=== PATIENT | female | born 1960 | race Caucasian/White ===

== ENCOUNTER → 2017-04-13 | Outpatient (CLI) | payer OTHER ==
--- NOTE | 2017-04-13 10:57 | KCIC ---
EXAM: Left hip, 2 views; lumbar spine, 5 views. HISTORY: Pain. COMPARISON: None. FINDINGS: Lumbar spine: Frontal, lateral, bilateral oblique and coned sacral views of the lumbar spine are obtained. There is no listhesis. The vertebral bodies are normal in height and the disc spaces are preserved. There is mild facet arthropathy at the lumbosacral junction. Left hip: Frontal and lateral views of the left hip are obtained. There is no fracture, dislocation or subluxation. The femoral head is normal in configuration. There is a small incidental synovial herniation pit within the femoral neck. IMPRESSION: 1. No acute osseous finding. 2. Mild facet arthropathy at the lumbosacral junction. Electronically signed by: Kizzy Corey MD (04/13/2017 10:53 AM) [facility]
== END | disposition home or self-care (01) ==
LOC: KCIC 08:07
PROVIDERS: ATTEND Internal Medicine
DX: M25.552 Pain in left hip (principal); M54.5 Low back pain
CPT/HCPCS: 72110; 73502

== ENCOUNTER → 2017-08-02 | Outpatient (CLI) | payer OTHER ==
--- NOTE | 2017-08-04 10:02 | KCIC ---
Bilateral digital screening mammograms: Reason for examination: Routine screening. Comparison is made to previous studies dated 07/09/2016 and 07/04/2015. Interpretation was made with the benefit of CAD. The skin and nipples show no abnormalities. No abnormal axillary lymph nodes are seen. The breast parenchyma shows scattered fibroglandular density. (Breast density: Category B.) There are no dominant masses, suspicious calcifications or architectural distortions. Impression: No evidence of malignancy. Recommend routine screening. BI-RADS Category 1: Negative. "Our facility is accredited by the [employer] Mammography [employer]." This patient's information has been entered into a reminder system for the patient to be notified with the results of her examination and a target date for the next mammogram. Electronically signed by: Michela Schulte MD (08/04/2017 9:58 AM) [id number]
== END | disposition home or self-care (01) ==
LOC: KCIC MAMMO 15:31
PROVIDERS: ATTEND Internal Medicine
DX: Z12.31 Encounter for screening mammogram for malignant neoplasm of breast (principal)
CPT/HCPCS: G0202; 77067

== ENCOUNTER → 2018-08-31 | Outpatient (CLI) | payer OTHER ==
--- NOTE | 2018-08-31 16:53 | KCIC ---
Bilateral digital screening mammograms: Reason for examination: Routine screening. Comparison is made to previous studies dated 08/02/2017 and 07/09/2016. Interpretation was made with the benefit of CAD. The skin and nipples show no abnormalities. No abnormal axillary lymph nodes are seen. The breast parenchyma shows scattered fibroglandular density. (Breast density: Category B.) There are no dominant masses, suspicious calcifications or architectural distortions. Impression: No evidence of malignancy. Recommend routine screening. BI-RADS Category 1: Negative. "Our facility is accredited by the [employer] Mammography [employer]." This patient's information has been entered into a reminder system for the patient to be notified with the results of her examination and a target date for the next mammogram. Electronically signed by: Michela Schulte MD (08/31/2018 4:49 PM) [facility]
== END | disposition home or self-care (01) ==
LOC: KCIC MAMMO 14:48
PROVIDERS: ATTEND Internal Medicine
DX: Z12.31 Encounter for screening mammogram for malignant neoplasm of breast (principal)
CPT/HCPCS: 77067

== ENCOUNTER → 2018-10-31 | Outpatient (CLI) | payer OTHER ==
--- NOTE | 2018-10-31 16:24 | KCIC ---
EXAM: Pelvic sonogram. HISTORY: Perineal pain. TECHNIQUE: Sonographic imaging of the pelvis was performed. COMPARISON: None. FINDINGS: The uterus measures 5.2 x 2.5 x 3.0 cm. The endometrial stripe measures 5 mm in thickness. The right ovary is not well seen due to bowel gas. This appears to be normal in size and demonstrate normal blood flow. The left ovary is surgically absent. The cervix is heterogeneous and contains calcifications. No discrete cervical mass is seen. There is no pelvic free fluid. IMPRESSION: 1. Upper limits of normal thickness endometrial stripe thickness for the postmenopausal status of the patient. 2. Heterogeneous cervix containing multiple calcifications. No discrete mass is seen sonographically. 3. Surgically absent left ovary and suboptimal evaluation of the right ovary due to bowel gas. Electronically signed by: Kizzy Corey MD (10/31/2018 4:21 PM) [id number]
== END | disposition home or self-care (01) ==
LOC: KCIC US 14:51
PROVIDERS: ATTEND Internal Medicine
DX: N88.8 Other specified noninflammatory disorders of cervix uteri (principal); Z90.721 Acquired absence of ovaries, unilateral; Z78.0 Asymptomatic menopausal state
CPT/HCPCS: 76830; 76856

== ENCOUNTER → 2018-11-23 | Outpatient (CLI) | payer OTHER ==
[~2018-11-23] MED LIST: IOHEXOL 240 MG/ML 50ML VIAL. PO ONE; IOHEXOL 300 MG/ML 100ML VIAL. IV ONE
--- NOTE | 2018-11-23 10:37 | KCIC ---
PQRS Compliance statement: One or more of the following individualized dose reduction techniques were utilized for this examination: 1. Automated exposure control. 2. Adjustment of the mA and/or kV according to patient size. 3. Use of iterative reconstruction technique. Indication:Lower abdominal pain. TECHNIQUE: CT abdomen and pelvis with IV contrast with multiplanar reformats. COMPARISON: None FINDINGS: Heart is normal in size. No pericardial or pleural effusion. Clear lung bases. Liver, spleen, gallbladder, pancreas, adrenals and kidneys within normal limits. No free pelvic fluid or ascites. No enlarged retroperitoneal or pelvic adenopathy. No bowel obstruction. Large amount of colonic stool burden. Normal appendix. Uterus is present. Urinary bladder within normal limits. No pneumoperitoneum. No suspicious bony lesion. IMPRESSION: No acute findings. Electronically signed by: Pavan Francis DO (11/23/2018 10:34 AM) [id number]
== END | disposition home or self-care (01) ==
LOC: KCIC CT 07:59
PROVIDERS: ATTEND Internal Medicine
DX: R10.30 Lower abdominal pain, unspecified (principal)
CPT/HCPCS: 74177; Q9966; Q9967

== ENCOUNTER → 2021-01-16 | Outpatient (CLI) | payer OTHER ==
--- NOTE | 2021-01-16 16:39 | KCIC ---
BILATERAL SCREENING MAMMOGRAM History: Routine screening. Comparison: Bilateral mammogram 08/31/2018. Technique: Routine digital mammogram views were obtained. Findings: Breast Tissue Density B : There are scattered areas of fibroglandular density. There are no dominant masses, suspicious microcalcifications or architectural distortion. IMPRESSION: No mammographic evidence of malignancy. Recommend routine screening. BI-RADS category 1: Negative. The images were reviewed with computer aided detection. Patient information is entered into the reminder system with a target due date for the next screening mammogram. Mammography is the most sensitive method for finding small breast cancers, but it does not detect the m all and is not a substitute for careful clinical examination. A negative mammogram does not negate a clinically suspicious finding and should not result in delay in biopsying a clinically suspicious a bnormality. "Our facility is accredited by the [employer] Mammography Program." Electronically signed by: Alexx Noriega MD (01/16/2021 4:36 PM) [id number]
== END ==
LOC: KCIC MAMMO 08:46
PROVIDERS: ATTEND Family Medicine
DX: Z12.31 Encounter for screening mammogram for malignant neoplasm of breast (principal)
CPT/HCPCS: 77067